=== PATIENT | male | born 1990 | race Caucasian/White ===

== ENCOUNTER 2018-07-28 19:48 | Inpatient (IN) | payer MEDICAID ==
[~2018-07-28] VITALS: Ht 175.3 cm; Wt 65.0 kg
[2018-07-28] MEDS ORDERED: LORazepam 2 MG/ML, 1ML IM ONE (20:00)
[2018-07-28] MEDS ORDERED: LORazepam 2 MG/ML, 1ML ONE ×3 (20:19→23:13)
[2018-07-28] MEDS ORDERED: LORazepam 2 MG/ML, 1ML IVPush ONE (21:30)
[2018-07-28] MEDS ORDERED: SODIUM CHLORIDE FLUSH 10ML SYR IVF ONE (21:30)
[2018-07-28] MEDS ORDERED: SODIUM CHLORIDE 0.9% 1,000ML IVBOLUS ONE (21:30)
[2018-07-28] MEDS ORDERED: ZIPRASIDONE 20 MG INJ IM ONE ×2 (21:51→22:00)
[2018-07-28 22:23] LABS: ALANINE AMINOTRANSFERASE 16 U/L (12-78); ALBUMIN 4.1 g/dL (3.4-5.0); ANION GAP 11 mmol/L (5-15); CHLORIDE 116 mmol/L (98-107); SALICYLATE LEVEL 15.6 mg/dL (2.8-20.0)
[2018-07-28 22:30] LABS: ALKALINE PHOSPHATASE 68 U/L (45-117); BILIRUBIN,TOTAL 0.3 mg/dL (0.2-1.0); CREATINE KINASE, TOTAL 192 U/L (39-308); TOTAL PROTEIN 7.8 g/dL (6.4-8.2)
[2018-07-28 22:31] LABS: ACETAMINOPHEN < 2 mcg/mL (10-30)
[2018-07-28] MEDS ORDERED: D5%-0.45% NACL 1,000 ML IV SCH (23:00)
[2018-07-28] MEDS: LORazepam 2 MG/ML, 1ML IVPush PRN (23:36)
[2018-07-29] MEDS ORDERED: LORazepam 2 MG/ML, 1ML ONE (01:54)
[2018-07-29] MEDS: LORazepam 2 MG/ML, 1ML IVPush PRN ×3 (01:58→05:55)
[2018-07-29] MEDS ORDERED: ONDANSETRON ODT 4 MG PO ONE (03:00)
[2018-07-29] MEDS ORDERED: ONDANSETRON ODT 4 MG ONE (03:20)
[2018-07-29] MEDS ORDERED: PROMETHAZINE 25 MG/ML, 1ML IM PRN (04:30)
[2018-07-29] MEDS ORDERED: hydrALAzine 20 MG/ML, 1ML IVPush PRN (04:30)
[2018-07-29] MEDS ORDERED: POLYETHYLENE GLYCOL 17 GM PACKET PO PRN (04:30)
[2018-07-29] MEDS ORDERED: BISACODYL 10 MG SUPP PR PRN (04:30)
[2018-07-29] MEDS ORDERED: ONDANSETRON 2MG/ML, 2ML IVPush PRN (04:30)
[2018-07-29] MEDS ORDERED: LABETALOL 5MG/ML, 20ML IVPush PRN (04:30)
[2018-07-29] MEDS ORDERED: ONDANSETRON ODT 4 MG PO PRN (04:30)
[2018-07-29] MEDS ORDERED: DOCUSATE 100 MG CAPSULE PO PRN (04:30)
[2018-07-29 04:53] LABS: BASOPHILS # (AUTO) 0.01 x10^3/uL (0-0.1); BASOPHILS % (AUTO) 0 % (0-1); EOSINOPHILS % (AUTO) 0 % (1-7); LYMPHOCYTES # (AUTO) 0.86 x10^3/uL (1-3.4); LYMPHOCYTES % (AUTO) 8 % (22-44); MD NO; MEAN CORPUSCULAR HEMOGLOBIN 29.1 pg (27.5-34.5); MEAN CORPUSCULAR HGB CONC 33.4 g/dL (33.2-36.2); MEAN CORPUSCULAR VOLUME 87.1 fL (81-97); MEAN PLATELET VOLUME 8.2 fL (7.4-10.4); MONOCYTES # (AUTO) 0.76 x10^3/uL (0.2-0.8); MONOCYTES % (AUTO) 7 % (2-9); NEUTROPHILS # (AUTO) 9.55 x10^3/uL (1.8-6.8); NEUTROPHILS % (AUTO) 85 % (42-75); PLATELET COUNT 242 x10^3/uL (130-400); RED BLOOD COUNT 4.51 x10^6/uL (4.38-5.82); RED CELL DISTRIBUTION WIDTH 14.1 % (9.4-14.8)
[2018-07-29 05:07] LABS: CHLORIDE 114 mmol/L (98-107)
[2018-07-29 05:18] LABS: HEMOGLOBIN A1C 5.1 % (4.2-6.3)
[2018-07-29 05:20] VITALS: BP 145/77
[2018-07-29 05:23] LABS: ALANINE AMINOTRANSFERASE 17 U/L (12-78); ALBUMIN 3.6 g/dL (3.4-5.0); ALKALINE PHOSPHATASE 55 U/L (45-117); ANION GAP 10 mmol/L (5-15); BILIRUBIN,TOTAL 0.4 mg/dL (0.2-1.0); CALCIUM 7.8 mg/dL (8.5-10.1); CREATININE 1.33 mg/dL (0.7-1.3); TOTAL PROTEIN 6.6 g/dL (6.4-8.2); TRIGLYCERIDES 51 mg/dL (50-200)
[2018-07-29 05:24] LABS: CHOL/HDL RATIO 2.6; CHOLESTEROL, TOTAL 110 mg/dL (140-239); FREE T4 (FREE THYROXINE) 0.91 ng/dL (0.76-1.46); HDL CHOL % 38 % (26-37); HDL CHOLESTEROL (DIRECT) 42 mg/dL (40-60); LDL CHOLESTEROL,CALCULATED 58 mg/dL (54-169); LDL/HDL RATIO 1.4 (0.5-3.0); THYROID STIMULATING HORMONE 0.386 mIU/L (0.358-3.740); VLDL CHOLESTEROL 10 mg/dL (0-25)
[2018-07-29] MEDS: D5%-0.45% NACL 1,000 ML IV SCH ×2 (05:46→10:58)
[2018-07-29 06:23] VITALS: BP 145/77
[2018-07-29 08:54] VITALS: BP 137/77
[2018-07-29 13:20] VITALS: BP 130/81
[2018-07-29 13:49] LABS: MICROSCOPIC INDICATED
[2018-07-29 14:02] LABS: CULTURE INDICATED? NO
[2018-07-29 19:26] VITALS: BP 139/80
[2018-07-30 00:41] VITALS: BP 132/76
[2018-07-30 07:16] VITALS: BP 135/79
[2018-07-30 13:15] VITALS: BP 125/77
[2018-07-30 18:57] VITALS: BP 136/78
[2018-07-31 02:05] VITALS: BP 109/65
[2018-07-31 06:23] VITALS: BP 137/77
[2018-07-31] MEDS ORDERED: DOCU-131 PO (12:47)
== END 2018-07-31 13:40 | disposition home or self-care (01) | DRG 917 ==
LOC: ED 23:49 → EDIP 07-29 04:27 → 4EST 07-29 05:04 → 3NW 07-31 06:32
PROVIDERS: ADMIT Internal Medicine; ATTEND Internal Medicine
DX: T43.621A Poisoning by amphetamines, accidental (unintentional), initial encounter (principal); N17.0 Acute kidney failure with tubular necrosis; G92 Toxic encephalopathy; E86.0 Dehydration; F11.10 Opioid abuse, uncomplicated; F15.159 Other stimulant abuse with stimulant-induced psychotic disorder, unspecified; Z87.891 Personal history of nicotine dependence; R00.0 Tachycardia, unspecified
CPT/HCPCS: 36415; 80053; 80061; 80307; 80329; 81001; 82550; 83036; 83735; 84439; 84443; 85025; 93005; 96361; 96372; 96374; 99291; G0378; J3486; Q0162; G0480; J2060; J7030